=== PATIENT | male | born 1965 | race Caucasian/White ===

== ENCOUNTER 2020-06-08 05:53 | Emergency (ER) | payer OTHER, BC | END 2020-06-08 09:22 | disposition home or self-care (01) | LOC: ER1 05:53 | DX: S76.112A Strain of left quadriceps muscle, fascia and tendon, initial encounter (principal); M25.462 Effusion, left knee; R03.0 Elevated blood-pressure reading, without diagnosis of hypertension; W01.198A Fall on same level from slipping, tripping and stumbling with subsequent striking against other object, initial encounter; Y92.89 Other specified places as the place of occurrence of the external cause; Y99.0 Civilian activity done for income or pay | CPT/HCPCS: 29530; 73564; 99283 ==

== ENCOUNTER → 2020-07-25 | Outpatient (CLI) | payer OTHER | LOC: EMI 08:38 | DX: M25.462 Effusion, left knee (principal); S80.02XA Contusion of left knee, initial encounter; S76.112A Strain of left quadriceps muscle, fascia and tendon, initial encounter; M79.89 Other specified soft tissue disorders; X58.XXXA Exposure to other specified factors, initial encounter | CPT/HCPCS: 73721 ==

== ENCOUNTER → 2020-07-28 | Outpatient (CLI) | payer OTHER, BC ==
[2020-07-28 08:07] LABS: HEMOGLOBIN 16.4 gm/dl (14.0-17.5); RED BLOOD COUNT 5.59 M/UL (4.20-5.50); WHITE BLOOD COUNT 6.7 K/UL (4.5-11.0)
[2020-07-28 08:33] LABS: BUN/CREATININE RATIO 25 (0-10)
[2020-07-29 08:14] LABS: THYROXINE (T4) 9.1 ug/dL (4.5-12.0)
[2020-07-30 04:11] LABS: VITAMIN D, 25-HYDROXY 15.5 ng/mL (30.0-100.0)
== END ==
LOC: LAB 06:00
PROVIDERS: Nurse Practitioner
DX: Z01.818 Encounter for other preprocedural examination (principal); Z13.21 Encounter for screening for nutritional disorder; Z12.5 Encounter for screening for malignant neoplasm of prostate
CPT/HCPCS: 36415; 71046; 80053; 80061; 83036; 84153; 84436; 84443; 84480; 85025; 93005